=== PATIENT | male | born 1945 | race Caucasian/White ===

== ENCOUNTER 2018-04-10 10:58 | Outpatient (CLI) | payer MEDICARE | END 2018-04-10 10:59 | disposition home or self-care (01) | LOC: CTENTCT 10:58 | PROVIDERS: ATTEND Otolaryngology Plastic Surgery within the Head & Neck | DX: J32.9 Chronic sinusitis, unspecified (principal) | CPT/HCPCS: 70486 ==

== ENCOUNTER 2018-04-28 10:15 | Outpatient (CLI) | payer MEDICARE ==
[~2018-04-28 10:15] MED LIST: ISOVUE-370 76%-LOCM 1 ML ONE
== END 2018-04-28 10:16 | disposition home or self-care (01) ==
LOC: BICCT 10:15
PROVIDERS: ATTEND Internal Medicine Gastroenterology
DX: K92.1 Melena (principal); R14.0 Abdominal distension (gaseous); K57.30 Diverticulosis of large intestine without perforation or abscess without bleeding; N28.89 Other specified disorders of kidney and ureter
CPT/HCPCS: 74177; 82565

== ENCOUNTER 2018-05-01 13:47 | Outpatient (CLI) | payer MEDICARE ==
--- NOTE | 2018-05-01 16:29 | ULT ---
RENAL ULTRASOUND: 05/01/18 HISTORY: Indeterminate lesion in the right kidney noted on recent CT. COMPARISON: None. CORRELATION: CT abdomen and pelvis 04/28/18. TECHNIQUE: Sagittal and transverse imaging of the kidneys is performed. FINDINGS: LEFT KIDNEY: Normal cortical echotexture. No hydronephrosis. Left kidney measures 12.4 x 5.6 x 5.8 cm. RIGHT KIDNEY: Anechoic focus emanating from the lower pole of the right kidney. Anechoic focus has through transmis karina and measures 3.8 x 3.3 x 3.3 cm. No hydronephrosis. Right kidney measures 11.5 x 4.7 x 5.6 cm. Urinary bladder is limited in evaluation due to inadequate distention. Prostate gland is enlarged debo suring 4.1 x 4.3 x 4.1 cm. IMPRESSION: Right renal cyst. POS: [facility]
== END 2018-05-01 13:48 | disposition home or self-care (01) ==
LOC: ULT 13:47
PROVIDERS: ATTEND Internal Medicine Gastroenterology
DX: N28.89 Other specified disorders of kidney and ureter (principal); N28.1 Cyst of kidney, acquired
CPT/HCPCS: 76770

== ENCOUNTER 2018-10-14 07:35 | Day surgery (SDC) | payer MEDICARE ==
[2018-10-13 15:39] VITALS: BMI 33.1
[2018-10-14 09:00] LABS: #Basophils 0.1 thou/uL (0.0-0.2); #Eosinphils 0.3 thou/uL (0.0-0.7); #Lymphocytes 1.8 thou/uL (1.20-3.40); #Monocytes 0.5 thou/uL (0.11-0.59); #Neutrophils 4.7 thou/uL (1.40-6.50); %Basophils 0.7 % (0.0-1.0); %Eosinophils 4.2 % (0.0-10.0); %Lymphocytes 24.1 % (21.0-51.0); %Monocytes 7.2 % (0.0-10.0); %Neutrophils 63.8 % (42.0-75.0); Mean Corpuscular Hemoglobin 29.5 pg (27.0-31.0); Mean Corpuscular Volume 89.4 fL (78.0-98.0); Mean Platelet Volume 8.9 fL (7.4-10.4); Platelet Count 163 thou/uL (130-400); RBC Distribution Width 12.2 % (11.5-14.5); Red Blood Cell (RBC) Count 5.07 mill/uL (4.70-6.10); White Blood Cell (WBC) Count 7.4 thou/uL (4.8-10.8)
[2018-10-14 09:05] LABS: Anion Gap 14 mmol/L (10-20); BUN (Urea Nitrogen) 19 mg/dL (8.4-25.7); Calc. Creatinine Clearance 86 mL/min (70-130); Calcium 9.2 mg/dL (7.8-10.44); Carbon Dioxide 25 mmol/L (23-31); Chloride 108 mmol/L (98-107); Estimated GFR-MDRD 70; Glucose 103 mg/dL (83-110); Potassium 4.7 mmol/L (3.5-5.1); Sodium 142 mmol/L (136-145)
[2018-10-14] MEDS ORDERED: Levofloxacin 500 mg/D5W 100 ml Premix Bag ONE (09:22)
[2018-10-14] MEDS ORDERED: B & O ONE (10:13)
[2018-10-14] MEDS ORDERED: Fentanyl 100 MCG/2 ML VIAL ONE (10:17)
--- NOTE | 2018-10-14 12:42 | OP ---
DATE OF PROCEDURE: 10/14/2018 PREOPERATIVE DIAGNOSES: Benign prostatic hyperplasia and prostate cancer. POSTOPERATIVE DIAGNOSES: Benign prostatic hyperplasia and prostate cancer. PROCEDURE PERFORMED: GreenLight laser vaporization of the prostate. ANESTHESIA: General with laryngeal mask airway. FINDINGS: Adequate opening up of an elevated prostate and bladder neck. A total of 75,473 joules used. SPECIMEN: Prostate. COMPLICATIONS: None. DRAIN REMAININ-Tajik 2-way. INDICATIONS FOR PROCEDURE: The patient is a 73-year-old male, who was diagnosed with an elevated PSA and ultimately prostate cancer and was proceeding with radiation therapy. However, he also had significant BPH symptoms and ultimately it was determined to be best if he had GreenLight laser vaporization of the prostate prior to his radiation in order to ensure that his urinary tract symptoms not further worsened after radiation. DESCRIPTION OF PROCEDURE: The patient was brought into the room by Anesthesia, laid on the table in supine position. After receiving general anesthetic, his legs were placed in lithotomy position and his perineum area was prepped and draped in a sterile fashion. Using a 22.5-Tajik cystoscope and a 30 degree lens, the urethra could not be traversed before dilating the meatus with Lorna sounds to 30-Tajik and then, the scope placed easily and traversed the urethra in the bladder. The ureteral orifices were identified and preserved throughout the case. The bladder neck was elevated and I took this all the way down to the floor of the trigonal ridge, which was then taken down to ensure that the bladder floor itself was flat. A power level of 80 was used near the bladder neck and veru and a power level of 180 was used for the midgland. When the scope was removed, good stream was noted. The scope was put back in. Bladder decompressed. Hemostasis ensured. A power level of 80 was used to paint the prostatic bed for further hemostasis. Again, a total of 75,473 joules used. When the scope was removed final time, 20-Tajik catheter was placed to gravity and the patient was awakened and transferred to PACU in stable condition. Job ID: [id number]
[2018-10-14] MEDS ORDERED: PROPOFOL 200 MG/20 ML VIAL ONE (16:41)
[2018-10-14] MEDS ORDERED: Dexamethasone 20 MG/5 ML VIAL ONE (16:41)
[2018-10-14] MEDS ORDERED: Ondansetron PF 4 MG/2 ML Vial ONE (16:41)
[2018-10-14] MEDS ORDERED: Lidocaine 1% PF 5 ML VIAL ONE (16:41)
== END 2018-10-14 14:15 | disposition home or self-care (01) ==
LOC: SDC 07:35
PROVIDERS: ATTEND Urology
PROC: 0VT08ZZ Resection of Prostate, Via Natural or Artificial Opening Endoscopic (ICD-10-PCS; principal; 2018-10-14)
DX: N40.1 Benign prostatic hyperplasia with lower urinary tract symptoms (principal); C61 Malignant neoplasm of prostate; R35.0 Frequency of micturition; R39.14 Feeling of incomplete bladder emptying; R35.1 Nocturia; R39.15 Urgency of urination; R39.12 Poor urinary stream; N52.9 Male erectile dysfunction, unspecified; Z79.899 Other long term (current) drug therapy
CPT/HCPCS: 36415; 80048; 85025; 88305; J1100; J1956; J2001; J2405; J2704; J3010

== ENCOUNTER 2018-12-03 10:11 | Outpatient (CLI) | payer MEDICARE ==
--- NOTE | 2018-12-03 12:21 | ULT ---
RIGHT UPPER QUADRANT ABDOMINAL ULTRASOUND: HISTORY: Right upper quadrant abdominal pain. TECHNIQUE: Multiplanar, gibbs scale, and color Doppler images were obtained in a right upper quadrant abdominal u ltrasound. FINDINGS: The liver demonstrates increased echogenicity without focal lesions or intrahepatic ductal dilatation . There are echogenic nonshadowing foci in the gallbladder which may represent small sludge balls or polyps. No gallbladder wall thickening is seen. The common bile duct is normal measuring 3 mm. The visualized portions of the pancreas are unremarkable. There is a cyst in the right kidney measur ing 4.2 cm in size. The right kidney measures 11.7 cm in length. IMPRESSION: 1. Fatty liver. 2. Adenomas versus cholesterol polyps along the gallbladder wall. 3. Right renal cyst. POS: [facility]
== END 2018-12-03 10:12 | disposition home or self-care (01) ==
LOC: ULT 10:11
PROVIDERS: ATTEND Radiology Radiation Oncology
DX: R10.11 Right upper quadrant pain (principal); K76.0 Fatty (change of) liver, not elsewhere classified; N28.1 Cyst of kidney, acquired
CPT/HCPCS: 76705